=== PATIENT | female | born 1990 ===

== ENCOUNTER 2021-03-24 05:20 | Inpatient (IN) ==
[2021-03-24] MEDS ORDERED: Ringers Solution, Lactated 1,000 ML ONE (05:59)
[2021-03-24] MEDS ORDERED: Metoclopramide 10 MG/2 ML VIAL IVP ONE (06:04)
[2021-03-24] MEDS ORDERED: Oxytocin 20 units/ LR 1000 mL 20 UNIT/1,000 ML BAG IVC ONE (06:04)
[2021-03-24] MEDS ORDERED: CeFAZolin 2,000 MG/120 ML BAG IVPB ONE (06:04)
[2021-03-24] MEDS ORDERED: Famotidine 20 MG/2 ML VIAL IVP ONE (06:04)
[2021-03-24] MEDS ORDERED: Ringers Solution, Lactated 1,000 ML IVC SCH (06:15)
[2021-03-24 06:22] LABS: Basophils % 0.3 %; Eosinophils # 0.1 K/mcL (0.0-0.6); Eosinophils % 0.6 %; Hematocrit 37.2 % (35.3-44.9); Hemoglobin 12.2 g/dL (11.5-15.4); Immature Granulocytes % 0.5 % (0-4); Lymphocytes # 2.9 K/mcL (0.6-4.6); Lymphocytes % 28.7 %; Mean Corpuscular HGB Conc 32.8 g/dL (31.6-35.5); Mean Corpuscular Hemoglobin 31.5 pg (28.0-33.3); Mean Corpuscular Volume 96.1 fL (83.0-100.0); Monocytes # 0.7 K/mcL (0.0-1.3); Monocytes % 7.4 %; Neutrophils # 6.2 K/mcL (1.6-8.9); Platelet Count 213 K/mcL (140-400); Red Blood Count 3.87 M/mcL (3.82-4.97); Segmented Neutrophils % 62.5 %; White Blood Count 9.9 K/mcL (4.3-11.1)
[2021-03-24 06:59] LABS: Influenza A PCR Negative (Negative); Influenza B PCR Negative (Negative); Resp. Syncytial Virus PCR Negative (Negative)
[2021-03-24 07:00] LABS: SARS-CoV-2 by PCR (In House) Negative (Negative)
[2021-03-24] MEDS ORDERED: *HR* Morphine Sulfate/PF 10 MG/10 ML AMPUL ONE (07:44)
[2021-03-24] MEDS ORDERED: *HR* FentaNYL (PF) 100 MCG/2 ML VIAL ONE (07:45)
[2021-03-24] MEDS ORDERED: Ondansetron 4 MG/2 ML VIAL ONE (07:57)
[2021-03-24] MEDS ORDERED: Acetaminophen IV 1,000 MG/100 ML BAG IVPB ONE (08:15)
[2021-03-24] MEDS ORDERED: Ketorolac 30 MG/ML VIAL ONE (08:38)
[2021-03-24 09:00] LABS: Amphetamine Screen,Urine Negative ng/mL (Cutoff=1000); Barbiturate Screen,Urine Negative ng/mL (Cutoff=200); Benzodiazepines Screen,Urine Negative ng/mL (Cutoff=200); Cannabinoid Screen,Urine Negative ng/mL (Cutoff = 50); Cocaine Screen,Urine Negative ng/mL (Cutoff= 300); Opiate Screen,Urine Negative ng/mL (Cutoff=300); Phencyclidine Screen,Urine Negative ng/mL (Cutoff=25)
[2021-03-24] MEDS ORDERED: Oxytocin 20 units/ LR 1000 mL 20 UNIT/1,000 ML BAG IVC SCH (11:36)
[2021-03-24] MEDS ORDERED: Metoclopramide 10 MG/2 ML VIAL IVP PRN (11:36)
[2021-03-24] MEDS ORDERED: Simethicone 80 MG TAB.CHEW PO PRN (11:36)
[2021-03-24] MEDS ORDERED: Ondansetron 4 MG/2 ML VIAL IVP PRN (11:36)
[2021-03-24] MEDS: Ibuprofen 600 MG TABLET PO SCH ×2 (14:32→20:27)
[2021-03-24] MEDS: CeFAZolin 2,000 MG/120 ML BAG IVPB SCH ×2 (16:15→23:00)
[2021-03-24] MEDS: metroNIDAZOLE 500 MG TABLET PO SCH ×2 (16:16→20:26)
[2021-03-24] MEDS: Acetaminophen 325 MG TABLET PO SCH ×2 (16:16→23:00)
[2021-03-24] MEDS: Prenatal Vit/FA 1 EACH TABLET PO SCH (20:26)
[2021-03-24] MEDS: *HR* OxyCODONE Immed Rel 5 MG TABLET PO PRN (23:00)
[2021-03-25] MEDS: Ibuprofen 600 MG TABLET PO SCH ×3 (04:51→16:58)
[2021-03-25 05:20] LABS: Basophils % 0.1 %; Eosinophils # 0.1 K/mcL (0.0-0.6); Eosinophils % 0.8 %; Hematocrit 28.9 % (35.3-44.9); Immature Granulocytes % 0.5 % (0-4); Lymphocytes # 2.4 K/mcL (0.6-4.6); Lymphocytes % 28.9 %; Mean Corpuscular HGB Conc 33.9 g/dL (31.6-35.5); Mean Corpuscular Hemoglobin 32.8 pg (28.0-33.3); Mean Corpuscular Volume 96.7 fL (83.0-100.0); Mean Platelet Volume 10.8 fL (9.4-12.4); Monocytes # 0.5 K/mcL (0.0-1.3); Monocytes % 5.6 %; Neutrophils # 5.4 K/mcL (1.6-8.9); Platelet Count 171 K/mcL (140-400); Red Blood Count 2.99 M/mcL (3.82-4.97); Segmented Neutrophils % 64.1 %; White Blood Count 8.4 K/mcL (4.3-11.1)
[2021-03-25 05:23] LABS: Hemoglobin 9.8 g/dL (11.5-15.4)
[2021-03-25] MEDS: Acetaminophen 325 MG TABLET PO SCH ×3 (06:19→18:49)
[2021-03-25] MEDS: *HR* OxyCODONE Immed Rel 5 MG TABLET PO PRN ×4 (06:20→19:43)
[2021-03-25] MEDS: metroNIDAZOLE 500 MG TABLET PO SCH ×2 (07:51→19:44)
[2021-03-25] MEDS: Prenatal Vit/FA 1 EACH TABLET PO SCH (07:51)
[2021-03-25] MEDS: CeFAZolin 2,000 MG/120 ML BAG IVPB SCH (07:52)
[2021-03-25] MEDS ORDERED: MOM Conc 10 ML UD.LIQ PO ONE (12:48)
[2021-03-26] MEDS: Ibuprofen 600 MG TABLET PO SCH ×3 (00:34→14:47)
[2021-03-26] MEDS: *HR* OxyCODONE Immed Rel 5 MG TABLET PO PRN ×4 (00:34→14:46)
[2021-03-26] MEDS: Acetaminophen 325 MG TABLET PO SCH ×2 (05:08→10:32)
[2021-03-26 08:23] VITALS: BP 126/81; PULSE 65; TEMP 98.2; O2SAT 99
[2021-03-26] MEDS: Prenatal Vit/FA 1 EACH TABLET PO SCH (08:28)
== END 2021-03-26 16:15 | disposition home or self-care (01) | DRG 787 ==
LOC: 1NENULAB 05:20 → 1NENUOBS 11:28
PROVIDERS: ADMIT Obstetrics & Gynecology; ATTEND Obstetrics & Gynecology